=== PATIENT | female | born 1985 | race African-American/Black ===

== ENCOUNTER 2024-03-12 13:37 | Emergency (ER) | payer OTHER ==
[2024-03-12 13:48] VITALS: BP 168/90; PULSE 94; RESP 18; TEMP 98.2; BMI 52.8
[2024-03-12] MEDS: ACETAMINOPHEN 500 MG TABLET (FP) PO ONE (14:19)
[2024-03-12] MEDS ORDERED: ACETAMINOPHEN 500 MG TABLET (FP) ONE (14:20)
[2024-03-12] MEDS ORDERED: IBUPROFEN 400 MG TABLET (FP) PO ONE (15:35)
[2024-03-12] MEDS: IBUPROFEN 400 MG TABLET (FP) PO ONE (15:36)
== END 2024-03-12 16:56 | disposition home or self-care (01) ==
LOC: JERFT 13:37
DX: M54.2 Cervicalgia (principal); M54.50 Low back pain, unspecified; S16.1XXA Strain of muscle, fascia and tendon at neck level, initial encounter; V49.40XA Driver injured in collision with unspecified motor vehicles in traffic accident, initial encounter; Y92.410 Unspecified street and highway as the place of occurrence of the external cause
CPT/HCPCS: 72125-TC; 84703; 99284-25